=== PATIENT | male | born 1950 | race African-American/Black ===

== ENCOUNTER 2021-05-24 09:55 | Outpatient (CLI) | payer OTHER ==
[2021-05-24 21:10] LABS: SARS-CoV-2 PCR by NAA Not Detected (NotDetected)
== END 2021-05-24 09:56 | disposition home or self-care (01) ==
LOC: CSHLAB 09:55
PROVIDERS: ATTEND Chiropractor
DX: Z01.812 Encounter for preprocedural laboratory examination (principal); Z20.822 Contact with and (suspected) exposure to COVID-19
CPT/HCPCS: U0003; U0005

== ENCOUNTER 2021-05-29 15:36 | Outpatient (CLI) | payer OTHER, MEDICARE | END 2021-05-29 15:37 | disposition home or self-care (01) | LOC: CSHCP 15:36 | PROVIDERS: ATTEND Chiropractor | DX: J44.9 Chronic obstructive pulmonary disease, unspecified (principal) | CPT/HCPCS: 71046; 94010; 94760 ==

== ENCOUNTER 2021-07-15 13:28 | Emergency (ER) | payer MEDICARE, OTHER ==
[2021-07-15] MEDS ORDERED: Lidocaine 1% PF 5 ML VIAL ONE (15:05)
== END 2021-07-15 16:15 | disposition home or self-care (01) ==
LOC: CSHERS 13:28
DX: L02.214 Cutaneous abscess of groin (principal); E11.22 Type 2 diabetes mellitus with diabetic chronic kidney disease; N18.9 Chronic kidney disease, unspecified; Z99.2 Dependence on renal dialysis
CPT/HCPCS: 10060